=== PATIENT | male | born 1970 | race African-American/Black ===

== ENCOUNTER 2018-01-07 12:50 | Emergency (ER) | payer BC, OTHER ==
--- NOTE | 2018-01-07 13:49 | ED Physician Documentation ---
PD HPI URI - Stated complaint Stated Complaint: ALLERGIC REACTION - Chief complaint Chief Complaint: Heent - History obtained from History obtained from: Patient - History of Present Illness Timing - onset: How many weeks ago (1 week of rash. He had dyed his dave the week prior but no reaction at the time. Then with redness and weeping of skin that has worsened.) Timing duration: Days Timing details: Gradual onset, Still present Associated symptoms: No: Fever, Nasal congestion, Sore throat, NVD Contributing factors: No: Sick contact, Travel, Immunocompromised Similar symptoms before: Has not had sx before Recently seen: Clinic Review of Systems Constitutional: denies: Fever, Myalgias Nose: denies: Rhinorrhea / runny nose, Congestion Throat: denies: Sore throat GI: denies: Nausea, Vomiting, Diarrhea PD PAST MEDICAL HISTORY - Past Medical History Past Medical History: Yes Cardiovascular: High cholesterol Respiratory: Pneumonia - Past Surgical History Past Surgical History: Yes General: Hiatal hernia repair - Present Medications Home Medications: Ambulatory Orders Medication Instructions Recorded Confirmed Atorvastatin Calcium 20 mg PO DAILY 07/29/14 01/07/18 Omeprazole 20 mg PO DAILY 07/29/14 01/07/18 Tramadol HCl 50 mg PO PRN 07/29/14 07/29/14 Dexamethasone [Decadron] 4 mg PO DAILY #5 tablet 01/07/18 Doxycycline Monohydrate 100 mg PO BID #14 tablet 01/07/18 Mupirocin 1 applic TP TID #15 oint...g. 01/07/18 - Allergies Allergies/Adverse Reactions: Allergies Allergy/AdvReac Type Severity Reaction Status Date / Time naproxen [From Naprosyn] Allergy Nausea Verified 01/07/18 13:05 - Social History Does the pt smoke?: Yes Smoking Status: Current every day smoker Does the pt drink ETOH?: Yes Does the pt have substance abuse?: No - Immunizations Immunizations are current?: Yes PD ED PE NORMAL - Vitals Vital signs reviewed: Yes - General General: Alert and oriented X 3, Well developed/nourished - HEENT HEENT: Ears normal, Moist mucous membranes, Pharynx benign, Other (lower lip outer aspect and then chin down to mental ridge with red superficial rawness with clear yellow diffuse weeping. He says he had dyed his dave the week prior but did not have rash initially. Then developed the red rash and is painful. Seen by PMD and given cetirizine and Clinda. Patient says has not improved and is worse the past 1-2 days. ) - Neck Neck: Supple, no meningeal sign, Other (submandibular adenopathy that is tender. ) - Cardiac Cardiac: RRR, No murmur - Respiratory Respiratory: Clear bilaterally - Derm Derm: Warm and dry, Other (chin and lower lip rash as above) Results - Vitals Vitals: Oxygen O2 Source Room air - Labs Labs: Microbiology 01/07/18 14:10 Wound Culture - Preliminary Face - Chin PD MEDICAL DECISION MAKING - ED course Complexity details: considered differential (raw and crusty, with yellow drainage from superficial skin infection, appears c/w impetigo. Has been on Clinda for few days without improvement. Will change to Doxy and add Mupirocin. ), d/w patient Departure - Departure Disposition: 01 Home, Self Care Clinical Impression: Impetigo Condition: Stable Record reviewed to determine appropriate education?: Yes Instructions: ED Impetigo Ch Follow-Up: Parul Beckford PA-C [Primary Care Provider] - Prescriptions: Dexamethasone [Decadron] 4 mg PO DAILY #5 tablet Doxycycline Monohydrate 100 mg PO BID #14 tablet Mupirocin 1 applic TP TID #15 oint...g. Comments: Cleanse the affected area 2-3 times a day gently with soap and water and apply mupirocin topical antibiotic lately to the major areas. Stop the clindamycin. Change to doxycycline twice daily for a week. Also add Decadron steroid for inflammation daily for the next 5 days. Use Tylenol or hydrocodone if needed for pain. Recheck if not improving over the next couple of days. Forms: Activity restrictions Discharge Date/Time: 01/07/18 15:02
[2018-01-07] MEDS ORDERED: DEXAMETHASONE 10 MG/ML VIAL PO STA (14:10)
[2018-01-07] MEDS ORDERED: MUPIROCIN 2% OINT 1 GM TOP STA (14:10)
[2018-01-07] MEDS ORDERED: DOXYCYCLINE 100 MG TABLET PO STA (14:10)
[2018-01-07 14:33] VITALS: BP 135/92
== END 2018-01-07 15:02 | disposition home or self-care (01) ==
LOC: ED 12:50
DX: L01.00 Impetigo, unspecified (principal); E78.00 Pure hypercholesterolemia, unspecified; F17.200 Nicotine dependence, unspecified, uncomplicated
CPT/HCPCS: 87070; 87205; 99283; A9270; 87077; 87181